=== PATIENT | male | born 1960 | race Caucasian/White ===

== ENCOUNTER 2017-10-21 18:28 | Emergency (ER) | payer OTHER, MEDICAID ==
[~2017-10-21] VITALS: Ht 175.3 cm; Wt 63.8 kg
[2017-10-21] MEDS ORDERED: PLEASE ENTER HEIGHT AND WEIGHT MC SCH (19:00)
[2017-10-21] MEDS ORDERED: ASPIRIN 81 MG TABLET CHEW PO ONE (19:00)
[2017-10-21] MEDS ORDERED: NITROGLYCERIN SINGLE TAB 0.4 MG SL PRN (19:00)
[2017-10-21] MEDS ORDERED: PLEASE ENTER ALLERGIES MC SCH (19:00)
[2017-10-21] MEDS ORDERED: SODIUM CHLORIDE FLUSH 10ML SYR IVF ONE (19:00)
[2017-10-21] MEDS ORDERED: SODIUM CHLORIDE 0.9% 1,000ML IVBOLUS ONE (19:00)
[2017-10-21 19:16] LABS: ALBUMIN 3.9 g/dL (3.4-5.0); ANION GAP 6 mmol/L (5-15); CALCIUM 9.1 mg/dL (8.5-10.1); CHLORIDE 108 mmol/L (98-107)
[2017-10-21 19:21] LABS: ALANINE AMINOTRANSFERASE 32 U/L (12-78); ALKALINE PHOSPHATASE 70 U/L (45-117); BILIRUBIN,TOTAL 0.8 mg/dL (0.2-1.0); CREATININE 1.22 mg/dL (0.7-1.3); TOTAL PROTEIN 7.3 g/dL (6.4-8.2); TROPONIN I < 0.015 ng/mL (0.000-0.045)
[2017-10-21 19:30] VITALS: BP 108/81
[2017-10-21 19:38] LABS: BASOPHILS # (AUTO) 0.02 x10^3/uL (0-0.1); BASOPHILS % (AUTO) 0 % (0-1); EOSINOPHILS # (AUTO) 0.09 x10^3/uL (0-0.4); EOSINOPHILS % (AUTO) 1 % (1-7); LYMPHOCYTES # (AUTO) 1.26 x10^3/uL (1-3.4); LYMPHOCYTES % (AUTO) 12 % (22-44); MD NO; MEAN CORPUSCULAR HEMOGLOBIN 30.2 pg (27.5-34.5); MEAN CORPUSCULAR HGB CONC 33.1 g/dL (33.2-36.2); MEAN CORPUSCULAR VOLUME 91.2 fL (81-97); MEAN PLATELET VOLUME 9.4 fL (7.4-10.4); MONOCYTES # (AUTO) 0.66 x10^3/uL (0.2-0.8); MONOCYTES % (AUTO) 6 % (2-9); NEUTROPHILS # (AUTO) 8.96 x10^3/uL (1.8-6.8); NEUTROPHILS % (AUTO) 82 % (42-75); PLATELET COUNT 266 x10^3/uL (130-400); RED BLOOD COUNT 5.08 x10^6/uL (4.38-5.82); RED CELL DISTRIBUTION WIDTH 12.7 % (9.4-14.8)
== END 2017-10-21 20:27 | disposition home or self-care (01) ==
LOC: ED 18:49
DX: R07.89 Other chest pain (principal); I10 Essential (primary) hypertension; I25.10 Atherosclerotic heart disease of native coronary artery without angina pectoris; I25.2 Old myocardial infarction; Z87.891 Personal history of nicotine dependence
CPT/HCPCS: 36415; 71045; 80053; 84484; 85025; 93005; 99285

== ENCOUNTER 2021-03-06 16:58 | Inpatient (IN) | payer MEDICAID, OTHER ==
[~2021-03-06] VITALS: Ht 177.8 cm; Wt 72.3 kg
--- NOTE | 2021-03-06 17:16 | NUR ---
AT BEDSIDE EXAMINING PT. PT TALKING TO STAFF WITH EYES CLOSED, STATES HE FEELS FATIGUED BUT THAT SOB IMPROVED SINCE HE HAD ARRIVED TO [facility]
[2021-03-06 18:23] LABS: ALBUMIN 3.7 g/dL (3.4-5.0); ANION GAP 7 mmol/L (5-15); CALCIUM 8.7 mg/dL (8.5-10.1); CHLORIDE 106 mmol/L (98-107)
[2021-03-06 18:25] LABS: BASOPHILS % (AUTO) 0 % (0-1); EOSINOPHILS % (AUTO) 1 % (1-7); LYMPHOCYTES % (AUTO) 12 % (22-44); MEAN CORPUSCULAR HEMOGLOBIN 29.6 pg (27.5-34.5); MEAN CORPUSCULAR HGB CONC 33.2 g/dL (33.2-36.2); MONOCYTES % (AUTO) 7 % (2-9); NEUTROPHILS % (AUTO) 79 % (42-75); PLATELET COUNT 252 x10^3/uL (130-400); RED BLOOD COUNT 5.25 x10^6/uL (4.38-5.82); RED CELL DISTRIBUTION WIDTH 13.3 % (9.4-14.8)
[2021-03-06 18:27] LABS: CREATININE 1.26 mg/dL (0.7-1.3)
--- NOTE | 2021-03-06 18:30 | NUR ---
FRIEND REJI CALLED AND WAS UPDATED. PER PT OK TO DISCUSS STATUS. NUMBER IS [phone]
[2021-03-06 18:31] LABS: TROPONIN I 0.033 ng/mL (0.000-0.045)
--- NOTE | 2021-03-06 18:58 | NUR ---
OUTPUT THUS FAR IN ER AT 2000 ML
[2021-03-06] MEDS ORDERED: POLYETHYLENE GLYCOL 17 GM PACKET PO PRN (20:00)
[2021-03-06] MEDS ORDERED: ONDANSETRON ODT 4 MG PO PRN (20:00)
[2021-03-06] MEDS ORDERED: BISACODYL 10 MG SUPP PR PRN (20:00)
[2021-03-06] MEDS ORDERED: ACETAMINOPHEN 325 MG TABLET PO PRN (20:00)
[2021-03-06] MEDS: SODIUM CHLORIDE FLUSH 10ML SYR IVF SCH (21:00)
[2021-03-06 21:25] VITALS: BP 150/105
[2021-03-06] MEDS ORDERED: CLOP75TA52 PO (21:33)
[2021-03-06] MEDS: CARVEDILOL 6.25 MG TABLET PO SCH (22:06)
[2021-03-06] MEDS: HEPARIN 5,000 UNITS/ML, 1ML SQ SCH (22:06)
[2021-03-06 22:19] VITALS: BP 153/106
[2021-03-06 23:21] LABS: MICROSCOPIC NOT IND
[2021-03-07 01:54] VITALS: BP 144/95
[2021-03-07 05:06] LABS: BASOPHILS % (AUTO) 0 % (0-1); EOSINOPHILS % (AUTO) 0 % (1-7); LYMPHOCYTES % (AUTO) 7 % (22-44); MEAN CORPUSCULAR HEMOGLOBIN 30.1 pg (27.5-34.5); MEAN CORPUSCULAR HGB CONC 34.1 g/dL (33.2-36.2); MEAN PLATELET VOLUME 9.5 fL (7.4-10.4); MONOCYTES % (AUTO) 7 % (2-9); NEUTROPHILS % (AUTO) 85 % (42-75); PLATELET COUNT 252 x10^3/uL (130-400); RED CELL DISTRIBUTION WIDTH 13.1 % (9.4-14.8)
[2021-03-07 05:13] LABS: CHLORIDE 104 mmol/L (98-107)
[2021-03-07 05:24] LABS: ANION GAP 10 mmol/L (5-15); CALCIUM 8.7 mg/dL (8.5-10.1); CHOL/HDL RATIO 4.4; CHOLESTEROL, TOTAL 142 mg/dL (140-239); CREATININE 0.98 mg/dL (0.7-1.3); HDL CHOL % 23 % (26-37); HDL CHOLESTEROL (DIRECT) 32 mg/dL (40-60); LDL CHOLESTEROL,CALCULATED 91 mg/dL (54-169); LDL/HDL RATIO 2.8 (0.5-3.0); TRIGLYCERIDES 96 mg/dL (50-200); TROPONIN I 0.034 ng/mL (0.000-0.045); VLDL CHOLESTEROL 19 mg/dL (0-25)
[2021-03-07 06:12] VITALS: BP 144/100
[2021-03-07] MEDS: HEPARIN 5,000 UNITS/ML, 1ML SQ SCH ×3 (06:14→22:20)
[2021-03-07] MEDS: CARVEDILOL 6.25 MG TABLET PO SCH ×2 (06:15→17:27)
[2021-03-07] MEDS: ASPIRIN 81 MG TABLET EC PO SCH (06:15)
[2021-03-07] MEDS: FUROSEMIDE 20 MG/2 ML IV SCH ×2 (06:18→17:27)
[2021-03-07] MEDS ORDERED: POTASSIUM CHLORIDE 20 MEQ TAB.ER.PRT PO ONE (07:30)
[2021-03-07] MEDS: SENNA/DOCUSATE TABLET PO SCH (07:59)
[2021-03-07] MEDS: SODIUM CHLORIDE FLUSH 10ML SYR IVF SCH ×2 (07:59→21:00)
[2021-03-07] MEDS: CLOPIDOGREL 75 MG TABLET PO SCH (07:59)
[2021-03-07] MEDS ORDERED: POTASSIUM CHLORIDE 20 MEQ TAB.ER.PRT PO SCH (08:00)
[2021-03-07 08:03] LABS: AMPHETAMINE SCREEN, URINE Positive (Negative); BARBITURATE SCREEN, URINE Negative (Negative); BENZODIAZEPINE SCREEN, URINE Negative (Negative); CANNABINOID SCREEN, URINE Negative (Negative); COCAINE SCREEN, URINE Negative (Negative); METHADONE SCREEN, URINE Negative (Negative); OPIATE SCREEN, URINE Negative (Negative)
[2021-03-07 10:50] LABS: TROPONIN I 0.031 ng/mL (0.000-0.045)
[2021-03-07 12:06] VITALS: BP 116/83
[2021-03-07 17:26] VITALS: BP 133/100
[2021-03-07] MEDS ORDERED: ATORVASTATIN 40 MG TABLET PO SCH (21:00)
[2021-03-07 21:03] VITALS: BP_SYST 120; BP_SYST 128; BP_DIAS 80; BP_DIAS 84
[2021-03-07] MEDS: ATORVASTATIN 10 MG TABLET PO SCH (22:20)
[2021-03-08 04:00] VITALS: BP 131/81
[2021-03-08 04:41] LABS: BASOPHILS % (AUTO) 1 % (0-1); EOSINOPHILS % (AUTO) 1 % (1-7); LYMPHOCYTES % (AUTO) 15 % (22-44); MEAN CORPUSCULAR HEMOGLOBIN 30.3 pg (27.5-34.5); MEAN CORPUSCULAR HGB CONC 34.3 g/dL (33.2-36.2); MEAN PLATELET VOLUME 9.1 fL (7.4-10.4); MONOCYTES % (AUTO) 10 % (2-9); NEUTROPHILS % (AUTO) 74 % (42-75); PLATELET COUNT 219 x10^3/uL (130-400); RED BLOOD COUNT 5.46 x10^6/uL (4.38-5.82); RED CELL DISTRIBUTION WIDTH 13.2 % (9.4-14.8)
[2021-03-08 04:49] LABS: ANION GAP 9 mmol/L (5-15); CALCIUM 8.7 mg/dL (8.5-10.1); CHLORIDE 104 mmol/L (98-107); CREATININE 1.11 mg/dL (0.7-1.3)
[2021-03-08] MEDS: HEPARIN 5,000 UNITS/ML, 1ML SQ SCH ×3 (05:58→20:10)
[2021-03-08] MEDS: CARVEDILOL 6.25 MG TABLET PO SCH (05:58)
[2021-03-08] MEDS: ASPIRIN 81 MG TABLET EC PO SCH (05:58)
[2021-03-08 06:48] VITALS: BP 120/79
[2021-03-08 09:09] VITALS: BP 120/82
[2021-03-08] MEDS: SODIUM CHLORIDE FLUSH 10ML SYR IVF SCH ×2 (09:10→21:00)
[2021-03-08] MEDS: CLOPIDOGREL 75 MG TABLET PO SCH (09:10)
[2021-03-08] MEDS: SENNA/DOCUSATE TABLET PO SCH (09:10)
[2021-03-08] MEDS: SPIRONOLACTONE 25 MG TABLET PO SCH (09:10)
[2021-03-08] MEDS: FUROSEMIDE 40 MG TABLET PO SCH (09:10)
[2021-03-08 12:23] VITALS: BP 122/83
[2021-03-08 17:18] VITALS: BP 121/88
[2021-03-08] MEDS: CARVEDILOL 3.125 MG TABLET PO SCH (17:20)
[2021-03-08 18:19] VITALS: BP 132/92
[2021-03-08] MEDS: ATORVASTATIN 10 MG TABLET PO SCH (20:10)
[2021-03-09 01:35] VITALS: BP 134/92
[2021-03-09 04:41] LABS: BASOPHILS % (AUTO) 1 % (0-1); EOSINOPHILS % (AUTO) 1 % (1-7); LYMPHOCYTES % (AUTO) 17 % (22-44); MEAN CORPUSCULAR HEMOGLOBIN 30.5 pg (27.5-34.5); MEAN CORPUSCULAR HGB CONC 34.8 g/dL (33.2-36.2); MONOCYTES % (AUTO) 13 % (2-9); NEUTROPHILS % (AUTO) 68 % (42-75); PLATELET COUNT 237 x10^3/uL (130-400); RED BLOOD COUNT 5.71 x10^6/uL (4.38-5.82); RED CELL DISTRIBUTION WIDTH 13.5 % (9.4-14.8)
[2021-03-09 04:56] LABS: CHLORIDE 106 mmol/L (98-107)
[2021-03-09 05:05] LABS: ANION GAP 7 mmol/L (5-15); CREATININE 1.08 mg/dL (0.7-1.3)
[2021-03-09] MEDS: HEPARIN 5,000 UNITS/ML, 1ML SQ SCH (05:05)
[2021-03-09] MEDS: CARVEDILOL 3.125 MG TABLET PO SCH (05:05)
[2021-03-09] MEDS: ASPIRIN 81 MG TABLET EC PO SCH (05:05)
[2021-03-09 06:53] VITALS: BP 111/74
[2021-03-09] MEDS ORDERED: POTASSIUM CHLORIDE 20 MEQ TAB.ER.PRT PO ONE (07:30)
[2021-03-09] MEDS: FUROSEMIDE 40 MG TABLET PO SCH (08:19)
[2021-03-09] MEDS: CLOPIDOGREL 75 MG TABLET PO SCH (08:19)
[2021-03-09] MEDS: SODIUM CHLORIDE FLUSH 10ML SYR IVF SCH (08:20)
[2021-03-09] MEDS: SPIRONOLACTONE 25 MG TABLET PO SCH (08:20)
[2021-03-09] MEDS: SENNA/DOCUSATE TABLET PO SCH (08:22)
[2021-03-09] MEDS ORDERED: SPIR25TA PO (10:00)
[2021-03-09] MEDS ORDERED: ATOR10TA9 PO (10:00)
[2021-03-09] MEDS ORDERED: FURO40TA6 PO (10:00)
[2021-03-09] MEDS ORDERED: CARV3.1212 PO (10:00)
[2021-03-09] MEDS ORDERED: ASPI81TA45 PO (10:00)
[2021-03-09] MEDS ORDERED: LISI5TAB7 PO (11:09)
[2021-03-09 12:34] VITALS: BP 122/83
== END 2021-03-09 13:30 | disposition home or self-care (01) | DRG 291 ==
LOC: ED 20:41 → EDIP 20:46 → 5SO 20:53
PROVIDERS: ADMIT Family Medicine; ATTEND Family Medicine
DX: I11.0 Hypertensive heart disease with heart failure (principal); J96.01 Acute respiratory failure with hypoxia; I47.2 Ventricular tachycardia; E11.9 Type 2 diabetes mellitus without complications; I50.43 Acute on chronic combined systolic (congestive) and diastolic (congestive) heart failure; E78.5 Hyperlipidemia, unspecified; E87.6 Hypokalemia; F15.10 Other stimulant abuse, uncomplicated; F17.210 Nicotine dependence, cigarettes, uncomplicated; F41.9 Anxiety disorder, unspecified; I25.10 Atherosclerotic heart disease of native coronary artery without angina pectoris; K21.9 Gastro-esophageal reflux disease without esophagitis; Z63.8 Other specified problems related to primary support group; Z91.19 Patient's noncompliance with other medical treatment and regimen; Z95.5 Presence of coronary angioplasty implant and graft; I25.2 Old myocardial infarction
CPT/HCPCS: 36415; 36600; 96374; 96376; 99285; C8929; 71045; 80048; 80061; 80307; 81003; 82040; 82803; 83735; 83880; 84100; 84443; 84484; 85025; 93005; G0378; J1644; Q9957; J1940